=== PATIENT | female | born 1960 | race Caucasian/White ===

== ENCOUNTER 2019-10-29 17:10 | Observation (INO) ==
[2019-10-29] MEDS ORDERED: IOPAMIDOL 100 ML BOTTLE IV ONE (17:11)
[2019-10-29] MEDS ORDERED: 0.9 % SODIUM CHLORIDE 1,000 ML IV ONE ×2 (18:22→21:28)
[2019-10-29] MEDS ORDERED: ONDANSETRON 4 MG/2 ML VIAL IV ONE ×2 (18:22→21:32)
--- NOTE | 2019-10-29 18:26 | Emergency Department Note ---
Abdominal Pain HPI - General Chief Complaint: Flank Pain Stated Complaint: stomach pain/bloating Time Seen by Provider: 10/29/19 17:47 Mode of arrival: ambulatory - History of Present Illness HPI Narrative: 59-year-old female patient presents emergency department chief complaint of worsening epigastric pain, bloating, early satiety times several weeks. Patient admits that she been worked up by gastroenterology worsening nausea and vomiting. She underwent an EGD study on 10/13 and during the study they found a Schatzki's ring that they stretched. Since the EGD she is noticed symptoms. She has had some mild bloating prior to the procedure but this is much worse. She was seen in follow-up by GI specialist last week who prescribed her Relistor for assumed constipation associated with her chronic opioid use. She admits to feeling her stomach "swelling up inside of me". She admits to vomiting almost nightly. She admits to sweats and chills at home. No overt fevers. She admits to a runny nose. She denies for congestion. She admits to mild shortness of breath. She admits to smoking daily. She denies retrosternal chest pain or palpitations. She admits that the pain in her abdomen is in the epigastric area radiating towards the posterior. She denies hematemesis she is yet, or hematu cirilo. She admits to a loose stool today. She denies passing flatus. She denies focal weakness. 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 - Related Data Home Medications Medication Instructions Recorded Confirmed diphenhydramine HCl 25 mg PO DAILY 09/17/17 10/13/19 fentaNYL [Fentanyl] 50 mcg TD Q48 12/30/18 10/13/19 Previous Rx's Medication Instructions Recorded Handicap Plackard #1 ea 04/24/18 diazepam 5 mg tablet 5 mg PO QHS PRN #1 tab 05/06/18 spironolactone 25 mg tablet 25 mg PO TID #90 tab 05/07/19 amlodipine 5 mg tablet 5 mg PO QDAY #30 tab 06/26/19 traMADol [Ultram] 50 mg PO Q6HP PRN #14 tab 07/29/19 traMADol [Ultram] 75 mg PO Q6HP PRN #80 tab 08/21/19 Allergies Allergy/AdvReac Type Severity Reaction Status Date / Time No Known Drug Allergies Allergy Verified 10/13/19 15:31 Review of Systems All systems ED: reviewed and negative except as stated. 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 Absent: scleral icterus, conjunctival injection ENT: Present: normal oropharynx, mucous membranes moist Neck: Present: trachea midline. Absent: lymphadenopathy, thyromegaly Chest: Present: symmetric chest wall rise Respiratory: Present: normal lung sounds bilaterally. Absent: respiratory distress, wheezes, stridor, accessory muscle use, prolonged expiratory phase Cardiovascular: Present: regular rate, normal rhythm. Absent: systolic murmur, diastolic murmur Abdominal: Present: soft, tenderness, guarding, hyperactive bowel sounds. Absent: distention, rebound, rigidity, organomegaly, mass Abdominal tenderness: Present: diffuse, moderate Extremities: Present: normal inspection, full ROM, normal capillary refill. Absent: pedal edema Neurological: Present: alert, oriented X3 Psychiatric: Present: depressed, anxious Skin: Present: warm, dry Course Course Narrative: Patient was brought into the emergency department and a history and physical exam was performed. Saline lock was established laboratory studies were drawn. Acute abdominal x-ray series was ordered and reviewed. Patient was given Zofran 4 mg IVP. Normal saline was started at 1000 L bolus. Upon reevaluation the patient continues to complain of bloating to her abdomen. A review of her laboratory studies show the following: CBC within normal limits. CMP creatinine 0.5, glucose 110, and all others normal limits. Lipase 10. UA showing turbid keith urine with specific gravity 1.029 and pH 5.0. Positive proteinuria, positive ketonuria, positive occult blood, positive leukocyte Estrace, RBC 7, WBC 9, significant epithelial cells. This is considered equivocal case. Acute abdominal x-ray series showed mechanical small bowel obstruction. This prompted me to contact the on-call general surgeon (Dr. Earl) concerning the patient's condition. He mentioned that it is unlikely to be a small bowel obstruction with the patient has not had any intra-abdominal surgeries. With this in mind, I monitored the patient for several more hours. During this time she been progressively ill with worsening abdominal discomfort and nausea/vomiting. She was given Zofran 4 mg IVP once again. She states complaint of abdominal bloating. This prompted me to contact Dr. Earl once again about the patient's condition and expressing my concern about discharging a patient with a known small bowel obstruction. Again, Dr. Earl speculated this is likely not a small bowel obstruction but he was reluctantly willing to accept the patient for an observation tonight. Patient remained afebrile, normotensive, with a normal heartbeat throughout her entire time in the emergency department and is being admitted under observation as mentioned. At this time holding orders were placed for the patient to stay overnight under the care of Dr. Earl. After the holding orders, all further treatment decisions and modalities to be carried out by Dr. Earl. Vital Signs Temperature 98.4 F 10/29/19 17:20 Pulse Rate 105 H 10/29/19 17:20 Respiratory Rate 20 10/29/19 17:20 Blood Pressure 141/93 10/29/19 17:20 Pulse Oximetry (%) 98 10/29/19 17:20 Temperature 98.4 F 10/29/19 21:48 Pulse Rate 105 H 10/29/19 17:20 Respiratory Rate 19 10/29/19 21:48 Blood Pressure 158/79 10/29/19 21:48 Pulse Oximetry (%) 95 10/29/19 21:48 Abdominal Pain - Lab Data Lab results reviewed: Yes I reviewed the patient's lab results. Result diagrams: 10/29/19 18:32 10/29/19 18:32 Lab Results 10/29/19 10/29/19 10/29/19 Range/Units 17:58 18:32 18:32 WBC 6.2 (4.50-11.00) K/mcL RBC 4.61 (3.59-5.38) M/mcL Hgb 11.5 (11.2-15.7) g/dL Hct 36.9 (34.1-44.9) % MCV 80.0 (80.0-100.0) fL MCH 24.9 L (26.0-34.0) pg MCHC 31.2 (31.0-36.0) g/dL RDW 16.8 H (11.5-14.5) % Plt Count 397 (140-440) K/mcL MPV 10.2 (7.4-10.4) fL Gran % 76.3 (38.0-78.0) % Lymph % (Auto) 15.2 L (15.5-49.0) % [place] % (Auto) 6.6 (1.0-12.0) % Eos % (Auto) 1.4 (0.0-7.0) % Baso % (Auto) 0.5 (0.0-2.0) % Gran # 4.76 (1.80-8.00) K/mcL Lymph # (Auto) 0.95 L (1.50-4.80) K/mcL [place] # (Auto) 0.41 (0.10-0.90) K/mcL Eos # (Auto) 0.09 (0.00-0.70) K/mcL Baso # (Auto) 0.03 (0.00-0.30) K/mcL Sodium 138 (133-145) mmol/L Potassium 3.5 (3.3-5.1) mmol/L Chloride 99 (96-108) mmol/L Carbon Dioxide 28 (22-30) mmol/L Anion Gap 11.0 (8-16) BUN 9 (6-20) mg/dl Creatinine 0.5 L (0.6-1.1) mg/dl GFR Calculation 107 Glucose 110 H (70-105) mg/dL Calcium 9.3 (8.6-10.4) mg/dl Total Bilirubin 0.3 (0.0-1.0) mg/dL AST 12 (0-37) U/l ALT 8 (0-40) U/l Alkaline Phosphatase 72 (39-117) U/L Total Protein 6.5 (5.9-8.4) gm/dL Albumin 3.7 (3.2-5.2) gm/dL Globulin 2.8 (2.2-3.7) gm/dL Albumin/Globulin Ratio 1.3 (1.0-2.3) Lipase 10 (7-60) U/L Urine Color Keith Urine Appearance Turbid Urine pH 5.0 (5.0-9.0) Ur Specific [place] 1.029 (1.000-1.035) Urine Protein 100 A (NEG) mg/dL Urine Glucose (UA) Negative (NEG) mg/dL Urine Ketones 20 A (NEG) mg/dL Urine Occult Blood 0.03 A (<0.03) mg/dL Urine Nitrate Neg (NEG) Urine Bilirubin Neg (NEG) mg/dL Urine Urobilinogen Neg (NEG) mg/dL Ur Leukocyte Esterase 75 A (NEG) /uL Urine RBC 7 H (0-1) /hpf Urine WBC 9 H (0-4) /hpf Ur Squamous Epith Cells 8 H (0-4) /hpf Amorphous Crystals Few A (0) /hpf Urine Bacteria 0 (0) /hpf Urine Mucus Many A (0) /hpf Ur Culture Indicated? No - Radiology Data Radiology results reviewed: Yes I reviewed the patient's radiology results. Ordering Physician: Marcos Fox PA-C Date of Service: 10/29/19 Procedure(s): XR chest 2V Accession Number(s): [id number] CLINICAL INFORMATION:Abdominal pain. 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 Primary is unknown TECHNIQUE: PA and lateral upright chest x-ray COMPARISON: Previous chest x-ray dated 06/02/2018 FINDINGS:Left-sided chemotherapy infusion catheter and port, unchanged Changes consistent with emphysema. There is increased AP diameter of the chest and hyperinflation. No acute common or parenchymal mass. No new abnormality. No focal infiltrate. No evidence for pneumonia. Heart size and vascularity are normal. No thoracic compression fracture IMPRESSION: 1. Emphysema 2. No acute abnormality. No interval change since 06/02/2018 Ordering Physician: Marcos Fox PA-C Date of Service: 10/29/19 Procedure(s): XR abdomen 2V Accession Number(s): [id number] CLINICAL INFORMATION: History of iliopsoas tumor. Unknown primary. Abdominal pain. TECHNIQUE: Supine and upright abdomen COMPARISON: Previous CT scan dated 09/16/2019 FINDINGS: Dilated gas-filled small bowel with air-fluid levels. Appearance is consistent with mechanical small bowel obstruction. Small bowel measures approximately 4 cm in cross-sectional diameter. There is no colonic gas or fecal material. There is no pneumoperitoneum. No biliary or portal venous gas. No pneumatosis. 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 Bacon) Clinical Impression: Small bowel obstruction, Adnexal mass Nausea & vomiting Qualifiers: Vomiting type: unspecified Vomiting Intractability: unspecified Qualified Code(s): R11.2 - Nausea with vomiting, unspecified Disposition: Xfer As Outpt/Obs ([facility]) Condition: Fair Additional Instructions: Patient has been admitted to the hospital under the care of Dr. Earl (general surgeon) for an observation stay. Holding orders can be placed by wi. All further treatment decisions and modalities to be carried out by Dr. Earl. Referrals: Theodore Estrada PA-C [Primary Care Provider] - Time of Disposition: 23:48
[2019-10-29 18:40] LABS: Appearance,Urine TURBID; Bacteria,Urine 0 /hpf (0); Bilirubin,Urine NEG (NEG); Color,Urine AMBER; Culture Indicated,Urine NO; Glucose,Urine (UA) NEGATIVE (NEG); Ketones,Urine 20 mg/dL (NEG); Leukocyte Esterase,Urine 75 /uL (NEG); Mucus,Urine MANY /hpf (0); Nitrate,Urine NEG (NEG); Protein,Urine 100 mg/dL (NEG); Specific Gravity,Urine 1.029 (1.000-1.035); Urine Amorphous Crystals FEW /hpf (0); Urine Blood 0.03 mg/dL (<0.03); Urine RBC 7 /hpf (0-1); Urine Squamous Epithelial Cell 8 /hpf (0-4); Urine WBC 9 /hpf (0-4); Urobilinogen,Urine NEG (NEG)
--- NOTE | 2019-10-29 19:18 | XRay Report ---
CLINICAL INFORMATION:Abdominal pain. 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 Primary is unknown TECHNIQUE: PA and lateral upright chest x-ray COMPARISON: Previous chest x-ray dated 06/02/2018 FINDINGS:Left-sided chemotherapy infusion catheter and port, unchanged Changes consistent with emphysema. There is increased AP diameter of the chest and hyperinflation. No acute common or parenchymal mass. No new abnormality. No focal infiltrate. No evidence for pneumonia. Heart size and vascularity are normal. No thoracic compression fracture IMPRESSION: 1. Emphysema 2. No acute abnormality. No interval change since 06/02/2018 Interpreted and Authenticated by: Kelton Duncan 10/29/19
--- NOTE | 2019-10-29 19:21 | XRay Report ---
CLINICAL INFORMATION: History of iliopsoas tumor. Unknown primary. Abdominal pain. TECHNIQUE: Supine and upright abdomen COMPARISON: Previous CT scan dated 09/16/2019 FINDINGS: Dilated gas-filled small bowel with air-fluid levels. Appearance is consistent with mechanical small bowel obstruction. Small bowel measures approximately 4 cm in cross-sectional diameter. There is no colonic gas or fecal material. There is no pneumoperitoneum. No biliary or portal venous gas. No pneumatosis. IMPRESSION: Mechanical small bowel obstruction Interpreted and Authenticated by: Kelton Duncan 10/29/19
[2019-10-29 19:26] LABS: Basophils # (Auto) 0.03 K/mcL (0.00-0.30); Basophils % (Auto) 0.5 % (0.0-2.0); Eosinophils # (Auto) 0.09 K/mcL (0.00-0.70); Eosinophils % (Auto) 1.4 % (0.0-7.0); Granulocytes % (Auto) 76.3 % (38.0-78.0); Hematocrit 36.9 % (34.1-44.9); Hemoglobin 11.5 g/dL (11.2-15.7); Lymphocytes # (Auto) 0.95 K/mcL (1.50-4.80); Lymphocytes % (Auto) 15.2 % (15.5-49.0); Mean Corpuscular HGB Conc 31.2 g/dL (31.0-36.0); Mean Platelet Volume 10.2 fL (7.4-10.4); Monocytes # (Auto) 0.41 K/mcL (0.10-0.90); Monocytes % (Auto) 6.6 % (1.0-12.0); Platelet Count 397 K/mcL (140-440); RBC 4.61 M/mcL (3.59-5.38); Red Cell Distribution Width 16.8 % (11.5-14.5); WBC 6.2 K/mcL (4.50-11.00)
[2019-10-29 19:38] LABS: ALT/SGPT 8 U/l (0-40); AST/SGOT 12 U/l (0-37); Albumin 3.7 gm/dL (3.2-5.2); Albumin/Globulin Ratio 1.3 (1.0-2.3); Alkaline Phosphatase 72 U/L (39-117); Bilirubin,Total 0.3 mg/dL (0.0-1.0); Blood Urea Nitrogen 9 mg/dl (6-20); Calcium 9.3 mg/dl (8.6-10.4); Carbon Dioxide 28 mmol/L (22-30); Chloride 99 mmol/L (96-108); Globulin 2.8 gm/dL (2.2-3.7); Glomerular Filtration Rate 107; Glucose 110 mg/dL (70-105)
--- NOTE | 2019-10-29 20:23 | Cat Scan Report ---
CLINICAL INFORMATION: Patient has been treated for malignancy within the left psoas muscle. Primary tumor is not known COMPARISON: Most recent previous CT scan dated 07/16/2019. Prior examinations dated 02/23/2019, 11/24/2018, 08/11/2018 TECHNIQUE: Axial images were obtained through the abdomen and pelvis. Sagittally and coronally reformatted images. 60 mL Isovue 370 injected intravenously. Oral contrast material was not administered FINDINGS: Lung bases:Negative. No focal infiltrate or mass. No pleural fluid. No pericardial fluid Liver:Negative. No focal intrahepatic abnormality. Liver contour is smooth. Gallbladder, billary:There are calcified gallstones. No dilated bile ducts Spleen:Negative. No splenomegaly. Normal enhancement of splenic and portal veins Pancreas:Negative. No pancreatic mass. No peripancreatic abnormality Adrenal glands:Negative Kidneys, ureters, bladder:Kidneys are negative. No solid or cystic mass. There is no hydronephrosis. There is no hydroureter. No bladder calculi Gastrointestinal:Colon is collapsed. There is dilated fluid and gas filled small bowel. There is a transition point in the right side of the pelvis. There is no volvulus or well-defined mass. This may be due to adhesions. Serosal implants are possible but not well-visualized. Vascular:Negative abdominal aorta. No abdominal aortic aneurysm. There is atherosclerotic calcification which is advanced for age Lymphatic:There is a left para-aortic retroperitoneal lymph node which measures 13 mm. This is identified on image #50. This appears to be new. No iliac chain adenopathy. No inguinal adenopathy. No significant mesenteric adenopathy Mesentery, peritoneum:There is free pelvic fluid. There is mild free intraperitoneal fluid in the upper abdomen. No definite peritoneal or mesenteric based mass. Reproductive:Uterus is anteflexed. There is a 2.9 cm right adnexal mass. This may be benign ovary but an adnexal mass including ovarian tumor is possible. This is more prominent than on previous examination. Pelvic ultrasound is recommended when clinically appropriate Musculoskeletal:There is enlargement of the left iliopsoas muscle. This is improved since 09/08/2018 20 cm unchanged since 07/16/2019. No lumbar compression fractures. No lytic lesions. Sacrum and pelvis are negative. Shoulder negative There is no abdominal wall hernia. There is edema in the subcutaneous soft tissues consistent with anasarca IMPRESSION: 1. Mechanical small bowel obstruction with transition point in the right side of the pelvis. This may be due to adhesions. Serosal implants or possible but not well defined 2. Free intraperitoneal fluid is new since previous examination 3. Single left periaortic lymph node is new 4. Right adnexal density may be a mass. Ultrasound is recommended 5. Left iliopsoas mass improved since 2018 and unchanged since 07/16/1990 The exam was performed using radiation dose optimization techniques including, but not limited to, automated exposure control, adjustment of the mA and/or kV according to patient size and use of iterative reconstruction technique. Interpreted and Authenticated by: Kelton Duncan 10/29/19
[2019-10-29] MEDS ORDERED: ONDANSETRON 4 MG/2 ML VIAL IV PRN (23:49)
[2019-10-30] MEDS: 0.9 % SODIUM CHLORIDE 1,000 ML IV SCH ×4 (00:57→16:30)
[2019-10-30] MEDS: HYDROmorphone 2 MG/ML VIAL IV PRN ×6 (01:17→17:07)
[2019-10-30] MEDS ORDERED: HEPARIN SODIUM,PORCINE/PF 500 UNIT/5 ML SYRINGE IV ONE (01:27)
[2019-10-30] MEDS ORDERED: 0.9 % SODIUM CHLORIDE 10 ML SYRINGE IV SCH (06:00)
[2019-10-30] MEDS ORDERED: DOCUSATE SODIUM 100 MG CAPSULE PO SCH (09:00)
--- NOTE | 2019-10-30 09:33 | General Surg History&Physical ---
History of Present Illness Patient information: Note initiated : 10/30/19 at 9:31 am Service Date, if different from initiated Date: [] Patient: Charo Henning a 59 y/o F admitted on 10/30/19 for stomach pain/bloating. Chief Complaint: [Nausea vomiting, history of abdominal malignancy ] Chief complaint: Nausea and vomiting HPI: Ms. 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 She has undergone chemotherapy for this until recently. She has a port-a-cath in-place, and she has not had any intra-abdominal surgery. She presented to [facility] ED yesterday with Nausea and vomiting. No other history is forthcoming as patient is a poor historian and does not remember her treating physicians. CT scan show dilated small bowel with possible transition in RLQ and a right adnexal mass which is new compared to CT's from 2018 when the original Bx was done. Review of Systems - Constitutional anorexia, fatigue, lethargy, weakness, weight loss - EENT Nose, mouth and throat: change in voice, hoarseness - Cardiovascular no chest pain, no chest pain with activity, no claudication - Respiratory cough, dyspnea, dyspnea on exertion, other (20+ pack year hx of cigarettes) - Gastrointestinal abdominal pain (Chronic abdominal pain), bloating, constipation, early satiety, vomiting - Musculoskeletal muscle weakness, other (Left Thigh swelling ?? of sarcoma,per patient not documented) Past History Past medical history: Malignancy in Left Psoas, treated with Chemo Bx was Poorly diff Non-small cell unknown primary Past surgical history: CT guided bx of left psoas no abdominal surgery Past social history: 20 + years of 1/2 to 1 ppd Cigarettes Medications and Allergies Home Medications Medication Instructions Recorded Confirmed Type fentaNYL [Fentanyl] 50 mcg TD Q48 12/30/18 10/30/19 History spironolactone 25 mg tablet 25 mg PO TID #90 tab 05/07/19 10/30/19 Rx amlodipine 5 mg tablet 5 mg PO QDAY #30 tab 06/26/19 10/30/19 Rx Handicap Plackard 1 dose .ROUTE .MEDSUPPLY 10/30/19 10/30/19 History Allergies Allergy/AdvReac Type Severity Reaction Status Date / Time No Known Drug Allergies Allergy Verified 10/13/19 15:31 Exam Temp Pulse Resp BP Pulse Ox 97.8 F 85 18 145/79 98 10/30/19 06:37 10/30/19 06:37 10/30/19 06:37 10/30/19 06:37 10/30/19 06:37 - General physical appearance moderate distress, moderate pain, cachectic, chronically ill - Eyes normal ocular movement. negative: icteric - Head Head exam IM: Present: atraumatic, normal inspection, normocephalic - Cardiovascular Cardiovascular exam IM: Present: normal rate and rhythm. Absent: diastolic murmur - Respiratory normal respiratory effort, clear to percussion - Abdomen Abdomen: Present: soft, non tender. Absent: rebound, distended - Genitourinary Present: other (not examined) Results - Results Chest x-ray: image reviewed Abdominal x-ray: image reviewed CT scan - abdomen: image reviewed CT scan - chest: image reviewed
[2019-10-30] MEDS ORDERED: NICOTINE 14 MG PATCH TOPICAL SCH (10:00)
[2019-10-30] MEDS ORDERED: fentaNYL 50 MCG PATCH TOPICAL SCH (10:00)
[2019-10-30] MEDS ORDERED: ONDANSETRON 4 MG/2 ML VIAL IV PRN (10:20)
--- NOTE | 2019-10-30 10:46 | XRay Report ---
CLINICAL INFORMATION: Small bowel obstruction. Follow-up TECHNIQUE: Supine and upright abdomen COMPARISON: Previous examination dated 10/29/2019. Previous CT scan dated 10/29/2019 FINDINGS: There continues to be prominent small bowel with air-fluid levels. Small bowel gas, however, is decreased since previous examination. There is some gas within the transverse colon. Overall appearance is improved. No pneumoperitoneum. No biliary or portal venous gas. No pneumatosis. IMPRESSION: Improved bowel gas pattern Interpreted and Authenticated by: Kelton Duncan 10/30/19
[2019-10-30] MEDS: POLYETHYLENE GLYCOL 3350 17 GM PACKET PO SCH (14:52)
[2019-10-30] MEDS: 0.9 % SODIUM CHLORIDE 10 ML SYRINGE IV SCH ×2 (14:53→20:54)
[2019-10-30] MEDS: SPIRONOLACTONE 25 MG TABLET PO SCH ×2 (16:09→20:53)
[2019-10-30] MEDS: DOCUSATE SODIUM 100 MG CAPSULE PO SCH (20:53)
[2019-10-30] MEDS ORDERED: SENNOSIDES 1 TABLET PO SCH ×2 (21:00)
[2019-10-31] MEDS: 0.9 % SODIUM CHLORIDE 1,000 ML IV SCH ×2 (00:40→08:48)
[2019-10-31] MEDS: HYDROmorphone 2 MG/ML VIAL IV PRN ×2 (04:56→08:45)
[2019-10-31] MEDS: 0.9 % SODIUM CHLORIDE 10 ML SYRINGE IV SCH (04:57)
[2019-10-31] MEDS: SPIRONOLACTONE 25 MG TABLET PO SCH (08:48)
[2019-10-31] MEDS: DOCUSATE SODIUM 100 MG CAPSULE PO SCH (08:48)
[2019-10-31] MEDS: POLYETHYLENE GLYCOL 3350 17 GM PACKET PO SCH (08:50)
[2019-10-31] MEDS ORDERED: POLYETHYLENE GLYCOL 3350 17 GM PACKET PO SCH ×2 (09:00)
[2019-10-31] MEDS ORDERED: amLODIPine 5 MG TABLET PO SCH (09:00)
--- NOTE | 2019-10-31 09:38 | Transfer Summary ---
Transfer Discharge Sum: Prov Patient information: Note initiated : 10/31/19 at 9:36 am Service Date, if different from initiated Date: [] Patient: Charo Henning 59 y/o F admitted on 10/30/19 for stomach pain/bloating. Chief Complaint: [] Date of admission: 10/30/19 00:40 Discharge Date: 10/31/19 Primary care physician: Theodore Estrada Attending physician on admission: Genaro Earl Consults: 10/30/19 07:18 Consult to Physician [CONS] Routine Comment: Consulting Provider: Genaro Earl Reason For Exam: Physician to Consult Discharging clinician: Genaro Earl Receiving physician/facility[facility] Acepting Physician, Dr. Hugo Georges, Hospitalist service. 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 Transfer Discharge Sum: Med - Medications Active and Home Medications: Home Medications fentaNYL [Fentanyl] 50 mcg TD Q48 12/30/18 [History Confirmed 10/30/19] spironolactone 25 mg tablet 25 mg PO TID #90 tab 05/07/19 [Rx Confirmed 10/30/19] amlodipine 5 mg tablet 5 mg PO QDAY #30 tab 06/26/19 [Rx Confirmed 10/30/19] Handicap Plackard 1 dose .ROUTE .MEDSUPPLY 10/30/19 [History Confirmed 10/30/19] Active Medications Amlodipine Besylate (Norvasc) 5 mg PO QDAY PENDING SALE TO [facility] Last Admin: 10/31/19 08:48 Dose: 5 mg Documented by: Docusate Sodium (Colace) 100 mg PO BID PENDING SALE TO [facility] Last Admin: 10/31/19 08:48 Dose: 100 mg Documented by: Fentanyl (Duragesic) 50 mcg TOPICAL Q72H PENDING SALE TO [facility] Heparin Sodium (Porcine) (Heparin Flush) 5 ml IV Q12 PENDING SALE TO [facility] Last Admin: 10/31/19 08:50 Dose: Not Given Documented by: Hydromorphone HCl (Dilaudid) 0.5 mg IV Q2HP PRN; Protocol PRN Reason: Per Pain Protocol Last Admin: 10/31/19 04:56 Dose: 0.5 mg Documented by: Sodium Chloride (Sodium Chloride 0.9%) 1,000 mls @ 125 mls/hr IV .Q8H PENDING SALE TO [facility] Last Admin: 10/31/19 08:48 Dose: 125 mls/hr Documented by: Nicotine (Nicoderm) 14 mg TOPICAL DAILY@1000 PENDING SALE TO [facility] Last Admin: 10/31/19 09:11 Dose: 14 mg Documented by: Ondansetron HCl (Zofran) 4 mg IV Q6HP PRN PRN Reason: Nausea And Vomiting Polyethylene Glycol (Miralax) 17 gm PO DAILY PENDING SALE TO [facility] Last Admin: 10/31/19 08:50 Dose: 17 gm Documented by: Senna (Senokot) 2 tab PO HS PENDING SALE TO [facility] Last Admin: 10/30/19 20:53 Dose: 2 tab Documented by: Sodium Chloride (Saline Flush) 10 ml IV Q8 PENDING SALE TO [facility] Last Admin: 10/31/19 04:57 Dose: 10 ml Documented by: Spironolactone (Aldactone) 25 mg PO TID PENDING SALE TO [facility] Last Admin: 10/31/19 08:48 Dose: 25 mg Documented by: Transfer Discharge Sum: Hosp Hospital course: Ms. Henning is a 59 year old F admitted for SBO and attempt at conservative management. She has not progressed satisfactorily and will be transferred to her regular treating physicians at [facility] - Time Spent with Patient Total time spent providing and/or coordinating transfer services: Greater than 30 minutes (Arranging transfer and accepting physicians) Transfer Discharge Sum: Exam - Constitutional Vitals: Vital Signs Temp Pulse Pulse Resp BP Pulse Ox 10/31/19 07:27 98.5 F 69 18 145/84 95 10/31/19 03:28 98.2 F 75 14 147/83 96 10/30/19 22:50 99.1 F H 72 14 156/84 98 10/30/19 20:09 98.5 F 70 70 18 133/79 98 10/30/19 16:00 98.9 F 64 18 141/79 99 10/30/19 12:00 98.1 F 75 18 151/82 98 Intake and Output 10/30/19 10/31/19 10/31/19 21:59 05:59 13:59 Intake Total 1300 1000 Balance 1300 1000 Intake: IV 1000 1000 Sodium Chloride 0.9% 1,000 ml @ 1000 1000 125 mls/hr IV .Q8H PENDING SALE TO [facility] Rx#: [id number] Oral 300 Other: Meal Lunch Percent of Meal Consumed 25% Feeding Ability Independent Urine Appearance Clear Urine Color Pale # Voids 1 1 Weight 102 lb General appearance: thin - Head Head exam: Present: atraumatic, normal inspection - Eye Eye exam: Present: EOMI, normal appearance. Absent: scleral icterus - Respiratory Respiratory exam: Present: normal respiratory exam. Absent: accessory muscle use - Cardiovascular Cardiovascular exam: Present: normal rate and rhythm - GI/Abdominal GI/Abdominal exam: Present: hypoactive bowel sounds. Absent: mass, rebound, tenderness Transfer Discharge Sum: Data Procedures and tests throughout hospitalization: Pending Orders 10/29/19 23:49 Ambulate-Progressive TID Condition Routine Notify Provider .routine Placement to Observation Routine VTE Risk: Assessment ONCE Vital Signs Q4 Weight Monitoring QHS RD to Adjust Diet/Supplements as Needed Routine 10/30/19 01:27 Portacath 08,20 Portacath Dressing Change .PRN 10/30/19 07:18 Consult to Physician [CONS] Routine 10/30/19 09:59 Resuscitation Status Routine 10/30/19 10:20 0.9 % Sodium Chloride [Sodium Chloride 0.9%] 1,000 ml IV 125 mls/hr HYDROmorphone [Dilaudid] 0.5 mg IV Q2HP PRN Ondansetron [Zofran] 4 mg IV Q6HP PRN 10/30/19 10:21 Clear Liquid Diet 10/30/19 12:30 Polyethylene Glycol 3350 [Miralax] 17 gm PO DAILY 10/30/19 14:00 0.9 % Sodium Chloride [Saline Flush] 10 ml IV Q8 10/30/19 15:00 Spironolactone [Aldactone] 25 mg PO TID 10/30/19 21:00 Docusate Sodium [Colace] 100 mg PO BID Heparin Flush 5 ml IV Q12 Sennosides [Senokot] 2 tab PO HS 10/31/19 Discharge Order Routine 10/31/19 09:00 amLODIPine [Norvasc] 5 mg PO QDAY 10/31/19 10:00 Nicotine [Nicoderm] 14 mg TOPICAL DAILY@1000 11/02/19 10:00 fentaNYL [Duragesic] 50 mcg TOPICAL Q72H 11/05/19 01:27 Portacath Dressing Change Q7D Transfer Discharge Sum: A/P - Problem Maintenance (1) Adnexal mass Status: Acute (2) Small bowel obstruction Status: Acute (3) Abdominal malignancy Status: Acute (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
[2019-10-31] MEDS ORDERED: NICOTINE 14 MG PATCH TOPICAL SCH (10:00)
[2019-11-01] MEDS ORDERED: fentaNYL 25 MCG PATCH TD SCH (09:00)
[2019-11-02] MEDS ORDERED: fentaNYL 50 MCG PATCH TOPICAL SCH (10:00)
== END 2019-10-31 11:30 | disposition short-term general hospital (02) ==
LOC: MEDSUR 17:10 → ED 17:10 → MEDSUR 10-30 00:40
PROVIDERS: ADMIT Specialist; ATTEND Specialist